=== PATIENT | female | born 1960 | race Caucasian/White ===

== ENCOUNTER 2017-01-28 10:01 | Outpatient (CLI) | payer OTHER ==
--- NOTE | 2017-01-31 16:18 | Mammography Report ---
DIGITAL SCREENING MAMMOGRAM: 01/28/2017 CLINICAL INDICATION: A 56-year-old nulliparous patient, for screening. COMPARISON: The patient reports having had a previous mammogram more than 10 years ago at an unknown location. If records in your office indicate where this mammogram was performed, we would be happy to try to obtain it for direct comparison. Otherwise, this will serve as a new baseline. TECHNIQUE: Routine CC and MLO projections were obtained of the breasts. Bilateral laterally exaggera eva craniocaudal views. FINDINGS: The breasts demonstrate fatty replacement bilaterally. Punctate, typically benign calcific ations are present. No suspicious masses, clustered microcalcifications, or regions of architectural distortion are identified. IMPRESSION: BENIGN FINDINGS. RECOMMENDATION: ROUTINE ANNUAL SCREENING UNLESS OTHERWISE CLINICALLY INDICATED. BIRADS CATEGORY 2-BENIGN FINDINGS. STANDARD QUALIFYING STATEMENTS 1. This examination was reviewed with the aid of Computer-Aided Detection (CAD). 2. A negative or benign imaging report should not delay biopsy if clinically suspicious findings are present. Consider surgical consultation if warranted. More than 5% of cancers are not identified by i maging. 3. Dense breasts may obscure an underlying neoplasm. JOB #: [id number] EXT JOB #:[id number]
== END 2017-01-28 10:02 | disposition home or self-care (01) ==
LOC: DI.N 10:01
PROVIDERS: ATTEND Physician Assistant
DX: Z12.31 Encounter for screening mammogram for malignant neoplasm of breast (principal)
CPT/HCPCS: 77067

== ENCOUNTER 2017-05-26 11:59 | Inpatient (IN) | payer OTHER ==
[2017-05-26 12:52] LABS: BASOPHILS # (AUTO) 0.1 10^3/uL (0.0-0.1); BASOPHILS % (AUTO) 0.3 %; EOSINOPHILS # (AUTO) 0.1 10^3/uL (0.0-0.7); EOSINOPHILS % (AUTO) 0.4 %; HGB - HEMOGLOBIN 16.8 g/dL (12.0-16.0); LYMPHOCYTES # (AUTO) 3.3 10^3/uL (1.5-3.5); LYMPHOCYTES % (AUTO) 16.1 %; MEAN CORPUSCULAR HEMOGLOBIN 29.5 pg (27.0-31.0); MEAN CORPUSCULAR HGB CONC 33.5 g/dL (32.0-36.0); MEAN CORPUSCULAR VOLUME 88.3 fL (81.0-99.0); MEAN PLATELET VOLUME 9.5 fL (7.9-10.8); MONOCYTES # (AUTO) 1.8 10^3/uL (0.0-1.0); MONOCYTES % (AUTO) 8.5 %; NEUTROPHILS # (AUTO) 15.4 10^3/uL (1.5-6.6); NEUTROPHILS % (AUTO) 74.7 %; PLT - PLATELET COUNT 360 10^3/uL (130-450); RED CELL DISTRIBUTION WIDTH 15.5 % (12.0-15.0); WHITE BLOOD COUNT 20.7 x10^3/uL (4.8-10.8)
[2017-05-26 13:07] LABS: DIFFERENTIAL COMMENT MANUAL=AUTO DIFF; PLATELET ESTIMATE, MANUAL NORMAL (130-450,000) (NORMAL); PLATELET MORPHOLOGY NORMAL APPEARANCE (NORMAL); RBC MORPHOLOGY (MULTIPLE) NORMAL APPEARANCE (NORMAL)
[2017-05-26 13:36] LABS: ALBUMIN 4.8 g/dL (3.2-5.5); ALBUMIN/GLOBULIN RATIO 1.1 (1.0-2.2); ALKALINE PHOSPHATASE 79 IU/L (42-121); ALT ALANINE AMINOTRANSFERASE 23 IU/L (10-60); AST ASPARTATE AMINOTRANSFERASE 21 IU/L (10-42); BILIRUBIN,TOTAL 0.9 mg/dL (0.2-1.0); BUN - BLOOD UREA NITROGEN 39 mg/dL (6-20); CALCIUM 10.4 mg/dL (8.5-10.3); CARBON DIOXIDE - CO2 24 mmol/L (21-32); CHLORIDE 93 mmol/L (101-111); CREATININE 1.8 mg/dL (0.4-1.0); GFR - MDRD 29 (>89); GLUCOSE 116 mg/dL (70-100); SODIUM 136 mmol/L (135-145)
[2017-05-26 13:39] LABS: LIPASE < 10 U/L (22-51)
[2017-05-26] MEDS ORDERED: HYDROmorphone 1 MG/ML SYRINGE IVP STA (13:57)
[2017-05-26] MEDS ORDERED: SODIUM CHLORIDE 0.9% 1,000 ML IV ONE (13:57)
[2017-05-26] MEDS ORDERED: ONDANSETRON 4 MG/2 ML VIAL IVP STA (13:57)
--- NOTE | 2017-05-26 13:58 | ED Physician Documentation ---
PD HPI ABD PAIN - Stated complaint Stated Complaint: ABD PX/VOMITING - Chief complaint Chief Complaint: Abd Pain - History obtained from History obtained from: Patient - History of Present Illness Timing - onset: Other (57-year-old woman has remote history of laparoscopic cholecystectomy, otherwise healthy with a long-standing umbilical hernia presents with 2 days of upper abdominal pain associated with vomiting, unable to keep anything down, and lack of flatus or bowel movements. She went to an urgent care yesterday and was referred to the emergency department but she could not get a ride yesterday. No improvement since yesterday.) Review of Systems Ten Systems: 10 systems reviewed and negative Constitutional: denies: Fever, Chills GI: reports: Abdominal Pain, Nausea, Vomiting, Constipation. denies: Diarrhea, Hematemesis, Bloody / black stool PD PAST MEDICAL HISTORY - Past Medical History Past Medical History: No Psych: Depression - Past Surgical History Past Surgical History: Yes General: Cholecystectomy - Present Medications Home Medications: Ambulatory Orders Medication Instructions Recorded Confirmed Ibuprofen [Advil] 200 mg PO 05/26/17 buPROPion [Wellbutrin Xl] 400 mg PO DAILY 05/26/17 05/26/17 - Allergies Allergies/Adverse Reactions: Allergies Allergy/AdvReac Type Severity Reaction Status Date / Time Sulfa (Sulfonamide AdvReac Unknown Verified 05/26/17 12:27 Antibiotics) - Social History Does the pt smoke?: Yes Smoking Status: Current every day smoker Does the pt drink ETOH?: No Does the pt have substance abuse?: Yes Substance Use and Type: Marijuana - Family History Family history: reports: Non contributory - Immunizations Immunizations are current?: Yes PD ED PE NORMAL - Vitals Vital signs reviewed: Yes - General General: Alert and oriented X 3, Other (Tachycardic, Appears uncomfortable) - HEENT HEENT: PERRL, EOMI - Neck Neck: Supple, no meningeal sign, No bony TTP - Cardiac Cardiac: RRR, No murmur - Respiratory Respiratory: No respiratory distress, Clear bilaterally - Abdomen Abdomen: Other (She has an incarcerated umbilical hernia that is focally tender , I am only partially able to reduce it during initial examination prior to pain medication. There is no diffuse tenderness. She lacks bowel tones.) - Back Back: No CVA TTP, No spinal TTP - Derm Derm: Normal color, Warm and dry - Extremities Extremities: No deformity, No tenderness to palpate, Normal ROM s pain - Neuro Neuro: Alert and oriented X 3, Normal speech - Psych Psych: Normal mood, Normal affect Results - Vitals Vitals: Vital Signs - 24 hr 05/26/17 05/26/17 12:24 13:42 Temperature 36.8 C Heart Rate 115 H 94 Respiratory 18 18 Rate Blood Pressure 128/103 H 124/84 H O2 Saturation 96 93 Oxygen O2 Source Room air - Labs Labs: Laboratory Tests 05/26/17 05/26/17 12:45 12:45 WBC 20.7 H RBC 5.70 H Hgb 16.8 H Hct 50.3 H MCV 88.3 MCH 29.5 MCHC 33.5 RDW 15.5 H Plt Count 360 MPV 9.5 Neut # 15.4 H Lymph # 3.3 [place] # 1.8 H Eos # 0.1 Baso # 0.1 Absolute Nucleated RBC 0.01 Band Neuts % (Manual) Not Reportable Abnorm Lymph % (Manual) Not Reportable Nucleated RBC % 0.1 Neutrophils # (Manual) Not Reportable Lymphocytes # (Manual) Not Reportable Monocytes # (Manual) Not Reportable Eosinophils # (Manual) Not Reportable Basophils # (Manual) Not Reportable Differential Comment MANUAL=AUTO DIFF Manual Slide Review Indicated WBC Morphology NORMAL APPEARANCE Platelet Estimate NORMAL (130-450,000) Platelet Morphology NORMAL APPEARANCE RBC Morph Micro Appear NORMAL APPEARANCE Sodium 136 Potassium 3.7 Chloride 93 L Carbon Dioxide 24 Anion Gap 19.0 H BUN 39 H Creatinine 1.8 H Estimated GFR (MDRD) 29 L Glucose 116 H Calcium 10.4 H Total Bilirubin 0.9 AST 21 ALT 23 Alkaline Phosphatase 79 Total Protein 9.0 H Albumin 4.8 Globulin 4.2 Albumin/Globulin Ratio 1.1 Lipase < 10 L PD MEDICAL DECISION MAKING - ED course ED course: 57-year-old woman with symptoms and signs of a small bowel obstruction likely related to an incarcerated umbilical hernia. After the administration of pain medication I tried again to reduce its with only partial success and the surgeon was paged for consultation at 2:30 PM. Departure - Departure Disposition: ED Transfer to [facility] Clinical Impression: Incarcerated umbilical hernia, SBO (small bowel obstruction) Condition: Serious
[2017-05-26] MEDS ORDERED: AMPICILLIN/SULBACTAM 3 GM in SODIUM CHLORIDE 0.9% MINIBAG 100 ML IV STA (14:44)
[2017-05-26] MEDS ORDERED: LACTATED RINGERS 1,000 ML IV ONE ×2 (17:13→18:16)
[2017-05-26] MEDS ORDERED: LIDOCAINE 1%-EPI 1:100000 20 ML MDV SUBQ ONE ×2 (17:22)
[2017-05-26] MEDS ORDERED: BUPIVACAINE 0.25% PF 30 ML VIAL SUBQ ONE ×2 (17:23)
[2017-05-26] MEDS ORDERED: ONDANSETRON 4 MG/2 ML VIAL IVP PRN (18:24)
[2017-05-26] MEDS ORDERED: SODIUM CHLORIDE FLUSH 0.9% 10 ML SYRINGE IVP PRN (18:24)
[2017-05-26] MEDS ORDERED: PHENOL THROAT SPRAY 177 ML MM PRN (18:24)
[2017-05-26] MEDS ORDERED: HYDROmorphone 1 MG/ML SYRINGE IVP PRN (18:24)
[2017-05-26] MEDS ORDERED: NEOSTIGMINE 1 MG/1 ML 10 ML MDV IVP ONE (18:30)
[2017-05-26] MEDS ORDERED: GLYCOPYRROLATE 1 MG/5 ML VIAL IVP ONE (18:30)
[2017-05-26] MEDS ORDERED: ROCURONIUM 50 MG/5 ML VIAL IVP ONE (18:30)
[2017-05-26] MEDS ORDERED: LIDOCAINE-MPF 2% 5 ML VIAL IM ONE (18:30)
[2017-05-26] MEDS ORDERED: MIDAZOLAM 2 MG/2 ML VIAL IVP ONE (18:30)
[2017-05-26] MEDS ORDERED: fentaNYL 100 MCG/2 ML VIAL IVP ONE (18:30)
[2017-05-26] MEDS ORDERED: PROPOFOL 200 MG/20 ML VIAL IVP ONE (18:30)
[2017-05-26] MEDS ORDERED: SUCCINYLCHOLINE 200 MG/10 ML VIAL IVP ONE (18:30)
[2017-05-26] MEDS: HYDROmorphone 1 MG/ML SYRINGE IVP PRN ×2 (18:42→18:55)
[2017-05-26] MEDS ORDERED: DEXAMETHASONE 4 MG/ML VIAL ONE (18:54)
[2017-05-26] MEDS ORDERED: SODIUM CHLORIDE 0.9% 1,000 ML IV SCH (19:00)
[2017-05-26] MEDS: ACETAMINOPHEN 1,000 MG/100 ML 100 ML IV SCH (20:58)
[2017-05-26] MEDS: SODIUM CHLORIDE 0.9% 1,000 ML IV SCH (21:14)
[2017-05-26] MEDS: FAMOTIDINE 20 MG/50 ML 50 ML IV SCH (21:20)
[2017-05-26] MEDS: AMPICILLIN/SULBACTAM 3 GM in SODIUM CHLORIDE 0.9% MINIBAG 100 ML IV SCH (23:44)
[2017-05-26] MEDS: SODIUM CHLORIDE FLUSH 0.9% 10 ML SYRINGE IVP SCH (23:45)
[2017-05-27] MEDS: ACETAMINOPHEN 1,000 MG/100 ML 100 ML IV SCH ×4 (01:15→19:01)
[2017-05-27] MEDS: HYDROmorphone 1 MG/ML SYRINGE IVP PRN ×6 (01:20→21:40)
[2017-05-27] MEDS: SODIUM CHLORIDE 0.9% 1,000 ML IV SCH ×4 (02:55→17:25)
[2017-05-27] MEDS: AMPICILLIN/SULBACTAM 3 GM in SODIUM CHLORIDE 0.9% MINIBAG 100 ML IV SCH ×3 (05:41→17:25)
[2017-05-27 06:02] LABS: BASOPHILS % (AUTO) 0.3 %; EOSINOPHILS # (AUTO) 0.1 10^3/uL (0.0-0.7); HGB - HEMOGLOBIN 13.5 g/dL (12.0-16.0); LYMPHOCYTES # (AUTO) 2.2 10^3/uL (1.5-3.5); LYMPHOCYTES % (AUTO) 17.5 %; MEAN CORPUSCULAR HEMOGLOBIN 29.2 pg (27.0-31.0); MEAN CORPUSCULAR HGB CONC 32.2 g/dL (32.0-36.0); MEAN CORPUSCULAR VOLUME 90.6 fL (81.0-99.0); MEAN PLATELET VOLUME 9.6 fL (7.9-10.8); MONOCYTES # (AUTO) 1.1 10^3/uL (0.0-1.0); MONOCYTES % (AUTO) 9.2 %; PLT - PLATELET COUNT 219 10^3/uL (130-450); RED BLOOD COUNT 4.61 10^6/uL (4.20-5.40); RED CELL DISTRIBUTION WIDTH 15.4 % (12.0-15.0); WHITE BLOOD COUNT 12.5 x10^3/uL (4.8-10.8)
[2017-05-27 06:06] LABS: CALCIUM 8.4 mg/dL (8.5-10.3); CREATININE 1.3 mg/dL (0.4-1.0)
[2017-05-27] MEDS: HEPARIN 5,000 UNIT/ML VIAL SUBQ SCH ×3 (11:00→21:27)
[2017-05-27] MEDS: SODIUM CHLORIDE FLUSH 0.9% 10 ML SYRINGE IVP SCH ×2 (11:01→15:27)
[2017-05-27 12:52] LABS: BILIRUBIN,URINE NEGATIVE (NEGATIVE); GLUCOSE, URINE (UA) NEGATIVE (NEGATIVE); KETONES,URINE (UA) TRACE mg/dL (NEGATIVE); LEUKOCYTE ESTERASE, URINE TRACE (NEGATIVE); NITRITE,URINE NEGATIVE (NEGATIVE); OCCULT BLOOD,URINE TRACE-INTA (NEGATIVE); PROTEIN,URINE NEGATIVE (NEGATIVE); UROBILINOGEN,URINE 0.2 (NORMAL) E.U./dL (NORMAL)
[2017-05-27 12:56] LABS: CLARITY,URINE CLEAR (CLEAR)
[2017-05-27 13:04] LABS: BACTERIA,URINE Rare /HPF (None Seen); RBC,URINE 0-5 /HPF (0-5); SQUAMOUS EPITHELIAL CELL,UR FEW Squamous (<= Few)
--- NOTE | 2017-05-27 15:13 | PROVIDER PROGRESS NOTE ---
Subjective - General Admit Date: 05/26/17 Procedure Date: 05/26/17 Post Op Days: 1 Procedure Performed: Repair of incarcerated ventral hernia with mesh - Review of Systems Wound/Incisions: positive: Healing well Gastrointestinal: positive: Other (no flatus) Objective - Patient Data Vital Signs: Vital Signs x48h Temp Pulse Resp BP Pulse Ox 05/27/17 12:31 36.5 C 88 18 152/54 H 95 Weight: Weight 05/25/17 05/26/17 05/27/17 23:59 23:59 23:59 Weight (kg) 102.5 kg Intake & Output: Intake and Output Totals x24h 05/25/17 05/26/17 05/27/17 23:59 23:59 23:59 Intake Total 1570 Output Total 150 1075 Balance -150 495 - Lab Results Lab Results: 05/27/17 05:22 05/27/17 05:22 Other Lab Results: Lab Results x24hrs 05/27/17 05/27/17 Range/Units 05:22 05:22 WBC 12.5 H (4.8-10.8) x10^3/uL RBC 4.61 (4.20-5.40) 10^6/uL Hgb 13.5 (12.0-16.0) g/dL Hct 41.8 (37.0-47.0) % MCV 90.6 (81.0-99.0) fL MCH 29.2 (27.0-31.0) pg MCHC 32.2 (32.0-36.0) g/dL RDW 15.4 H (12.0-15.0) % Plt Count 219 (130-450) 10^3/uL MPV 9.6 (7.9-10.8) fL Neut # 9.0 H (1.5-6.6) 10^3/uL Lymph # 2.2 (1.5-3.5) 10^3/uL [place] # 1.1 H (0.0-1.0) 10^3/uL Eos # 0.1 (0.0-0.7) 10^3/uL Baso # 0.0 (0.0-0.1) 10^3/uL Absolute Nucleated RBC 0.01 x10^3/uL Nucleated RBC % 0.1 /100WBC Sodium 139 (135-145) mmol/L Potassium 3.7 (3.5-5.0) mmol/L Chloride 102 (101-111) mmol/L Carbon Dioxide 26 (21-32) mmol/L Anion Gap 11.0 (6-13) BUN 31 H (6-20) mg/dL Creatinine 1.3 H (0.4-1.0) mg/dL Estimated GFR (MDRD) 43 L (>89) Glucose 99 (70-100) mg/dL Calcium 8.4 L (8.5-10.3) mg/dL - Current Medications Current Medications: Current Medications Generic Name Dose Route Start Last Admin Trade Name Freq PRN Reason Stop Dose Admin Heparin Sodium (Porcine) 5,000 unit 05/27/17 09:00 05/27/17 14:05 SUBQ 5,000 unit TID AVTAR Administration Hydromorphone HCl 2 mg 05/26/17 18:33 05/27/17 07:06 Dilaudid Inj Syringe IVP 2 mg Q2H PRN Administration PAIN Hydromorphone HCl 1 mg 05/26/17 18:35 05/27/17 12:41 Dilaudid Inj Syringe IVP 1 mg Q2H PRN Administration Abdominal Pain Famotidine 50 mls @ 100 mls/hr 05/26/17 21:00 05/27/17 03:31 Pepcid 20 Mg/50 Ml IV Infused HS AVTAR Infusion Acetaminophen 100 mls @ 400 mls/hr 05/26/17 19:00 05/27/17 12:37 Ofirmev IV 400 mls/hr Q6H AVTAR Administration Ampicillin Sodium/Sulbactam 100 mls @ 200 mls/hr 05/27/17 00:00 05/27/17 12: 25 Sodium 3 gm/ Sodium Chloride IV 05/27/17 18:29 Infused Q6HR AVTAR Infusion Sodium Chloride 1,000 mls @ 150 mls/hr 05/26/17 19:00 05/27/17 05:41 Normal Saline 0.9% IV 150 mls/hr .Q6H40M AVTAR Administration Ondansetron HCl 4 mg 05/26/17 18:24 05/26/17 18:50 Zofran Inj IVP 4 mg Q6H PRN Administration Nausea / Vomiting Sodium Chloride 10 ml 05/27/17 01:00 05/27/17 11:01 Normal Saline Flush 0.9% IVP 10 ml 0100,0900,1700 [facility] Administration - Physical Exam Wound/Incisions: positive: Healing well Respiratory: positive: No respiratory distress, Breath sounds nml Cardiovascular: positive: Regular rate & rhythm Impression/Plan - Problem List Problem List: Doing well without problems. Cr decreasing to 1.3 with hydration. Ambulate Await return of bowel function D/c NGT
[2017-05-27] MEDS: FAMOTIDINE 20 MG/50 ML 50 ML IV SCH (21:28)
[2017-05-28] MEDS: SODIUM CHLORIDE FLUSH 0.9% 10 ML SYRINGE IVP SCH ×2 (00:47→12:24)
[2017-05-28] MEDS: ACETAMINOPHEN 1,000 MG/100 ML 100 ML IV SCH ×2 (00:47→06:26)
[2017-05-28] MEDS: SODIUM CHLORIDE 0.9% 1,000 ML IV SCH ×2 (01:57→08:16)
--- NOTE | 2017-05-28 02:55 | OPERATIVE REPORT ---
DATE OF SERVICE: 05/26/2017 Physician: Milad Boyce MD PREOPERATIVE DIAGNOSIS: Incarcerated ventral incisional hernia. POSTOPERATIVE DIAGNOSIS: Incarcerated ventral incisional hernia. NAME OF PROCEDURE: Repair of incarcerated ventral incisional hernia with mesh. SURGEON: Milad Boyce MD ANESTHESIA: General. INDICATIONS FOR PROCEDURE: The patient is a 57-year-old female who had a previous laparoscopic cholecystectomy many years ago. She now presents with a longstanding bulge in the periumbilical area where she had a previous surgical incisional scar. Within the last 2 days, this swelling that has been there for longstanding has now become painful, along with discoloration. Because of this, she came to the emergency room to be evaluated after 2 days of the abdominal pain. On physical exam, the patient had an incarcerated ventral incisional hernia with discoloration and tenderness concerning for a strangulated ventral incisional hernia. FINDINGS AT SURGERY: The patient had a loop of small bowel, being stuck in the ventral incisional hernia. At first, the bowel was discolored and purple. After freeing the bowel up and allowing it to be adequately perfused and warmed, the bowel did pink up and looked viable. No resection was indicated. The hernia was repaired using a 6 x 6 piece of polypropylene mesh placed in the preperitoneal space. The hernia defect measured approximately 2 x 2 inches. PROCEDURE: After informed consent was obtained, the patient was taken to the operating room, placed in supine position. General endotracheal anesthesia was administered. The patient's abdomen was then prepped and draped in the usual sterile fashion. A midline abdominal incision was then made in the skin around the hernia site at the umbilicus. Incision was then deepened down to the hernia sac, which was dissected free from the surrounding structures. Hernia sac was then opened carefully and a discolored small intestine was identified. The omentum that was alongside of the small bowel was then reduced and this took the pressure off the mesentery of the small bowel loop that had become incarcerated. The small bowel was then reduced back into the abdominal cavity and let sit there for 10 minutes. The bowel was then brought back out, with the area being discolored now having return of normal color. There is one area that had still some persistent discoloration. The area was wrapped with moist, warm laps. Waiting another 10 minutes, the rest of the bowel that had some still discoloration did turn to normal color, along with having peristalsis. With the bowel appearing to be viable, it was then reduced back into the abdominal cavity. The peritoneum was then taken down circumferentially around the wound for at least 2 inches. The peritoneum was then closed using running #3-0 Vicryl suture. The subcutaneous tissue around the hernia defect was then cleared using electrocautery for several centimeters from the fascial edge. A 6 x 6 piece of polypropylene mesh was then trimmed to appropriate size and placed into the preperitoneal space. The mesh was then tacked to the overlying fascia using transfascial fixation sutures of 0 Prolene and 0 PDS sutures, alternating circumferentially around the wound. The fascial defect was then closed transversely using interrupted 0 PDS sutures placed in a [id number] fashion. The wound was irrigated. Hemostasis was obtained using electrocautery. The umbilicus was then tacked down to the fascia using 3-0 Vicryl suture. Subcutaneous tissue was approximated using 3-0 Vicryl suture. The skin incision was closed using 4-0 Monocryl subcuticular stitch. Dermabond was then applied. The patient was then awakened, extubated, and taken from the operating room in stable condition. ESTIMATED BLOOD LOSS: Less than 10 mL COMPLICATIONS: None. CONDITION OF THE PATIENT AT THE END OF THE PROCEDURE: Stable. SPECIMENS: None. DRAINS, PACKS: None. CLASSIFICATION OF WOUND: Clean. TD: 05/28/2017 02:52 GINA
[2017-05-28] MEDS: HYDROmorphone 1 MG/ML SYRINGE IVP PRN ×2 (03:16→08:13)
[2017-05-28 05:13] LABS: CALCIUM 7.9 mg/dL (8.5-10.3); CREATININE 0.8 mg/dL (0.4-1.0)
[2017-05-28] MEDS: HEPARIN 5,000 UNIT/ML VIAL SUBQ SCH ×2 (06:25→14:20)
[2017-05-28] MEDS ORDERED: HYDROcod/ACETAM 5/325 MG TABLET PO PRN (09:48)
[2017-05-28] MEDS ORDERED: SODIUM CHLORIDE 0.9% 1,000 ML IV SCH (09:49)
[2017-05-28] MEDS: HYDROcod/ACETAM 5/325 MG TABLET PO PRN ×2 (10:45→14:15)
--- NOTE | 2017-05-28 16:02 | Discharge Plan ---
Discharge Plan Disposition: 01 Home, Self Care Condition: Stable Prescriptions: HYDROcod/ACETAM 325 [[place] 5/325] 2 tab PO Q4HR PRN #40 tablet PRN Reason: Pain Diet: Soft Activity Restrictions: no lifting over 15 lbs Shower Restrictions: No Driving Restrictions: Yes (Not while on [place]) Weight Bearing: Full Weight Additional Instructions or Follow Up instructions: Abdominal binder when up No Smoking: If you smoke, Please STOP! Call for help. Follow-up with: Tiffany Lopez PA-C [Primary Care Provider] - 2 Weeks Milad Boyce MD [Provider Admit Priv/Credential] - 2 Weeks
[2017-05-28 16:15] VITALS: BP 137/62
--- NOTE | 2017-05-30 08:02 | HISTORY & PHYSICAL EXAMINATION ---
DATE OF SERVICE: Physician: Milad Boyce MD REASON FOR ADMISSION: Abdominal pain, nausea and vomiting. HISTORY OF PRESENT ILLNESS: The patient is a 57-year-old female who presents with a 2-day history of abdominal pain, nausea and vomiting. She had a previous laparoscopic cholecystectomy and has had longstanding enlargement in the area of the previous incisional scar at the umbilicus. This is now turning discolored, which is another reason why she came to the emergency room to be evaluated. PAST SURGICAL HISTORY: Laparoscopic cholecystectomy. PAST MEDICAL HISTORY: Depression. MEDICATIONS 1. Ibuprofen. 2. Wellbutrin. SOCIAL HISTORY: The patient is single. HABITS: The patient does smoke and uses marijuana. Denies any alcohol use. ALLERGIES: SULFA MEDICATIONS. FAMILY HISTORY: Noncontributory. REVIEW OF SYSTEMS: A complete review of systems is obtained. Pertinent positives are gastrointestinal for abdominal pain, nausea and vomiting, and psychological for depression. A 12-point review of systems is obtained with pertinent positives discussed and all others being negative. PHYSICAL EXAMINATION VITAL SIGNS: Temperature is 36.8, heart rate 94, respirations 18, blood pressure 124/84. GENERAL: The patient is in mild distress secondary to her abdominal discomfort. EYES: Nonicteric. NECK: No lymphadenopathy. HEART: Regular. LUNGS: Clear. BACK: Nontender. ABDOMEN: Soft, tender around the umbilicus where she has an incarcerated ventral incisional hernia. The skin is discolored in this area. EXTREMITIES: No edema or cyanosis. NEUROLOGIC: The patient appears to be neurologically intact without any deficit. PSYCHOLOGICAL: The patient is coherent, cooperative, and appears to answer questions fully. DIAGNOSTIC DATA: White blood cell count of 21, hemoglobin 17, creatinine of 1.8, sodium 136, potassium 3.7. ASSESSMENT AND PLAN 1. Abdominal pain, nausea and vomiting secondary to incarcerated ventral incisional hernia. She is having skin discolorations around the hernia along with tenderness. I fear that she has incarcerated small bowel that may be ischemic or even nonviable. I recommended she undergo emergently surgery, being exploratory laparotomy, repair of incarcerated ventral incisional hernia with possible mesh, and possible bowel resection. The risks and possible complications of the procedure have been explained to her and include, but not limited to bleeding, infection, anesthesia risks, heart and lung problems, wound healing problems, infection of the mesh, recurrence of her hernia, anastomotic leak, enterotomy, scarring, etc. She accepts risks and wishes to proceed. No guarantees given or implied. 2. The patient has a creatinine 1.8. This most likely is secondary to dehydration as her incarcerated hernia may be causing a bowel obstruction along with nausea and vomiting. She will be aggressively hydrated. 3. Depression, on medications. PLAN 1. The patient will be admitted to the hospital. 2. N.p.o. 3. IV fluids. 4. IV antibiotics. 5. Exploratory laparotomy, possible bowel resection, possible repair of incarcerated ventral incisional hernia with mesh. TD: 05/30/2017 08:01
== END 2017-05-28 17:00 | disposition home or self-care (01) | DRG 355 ==
LOC: ED 11:59 → SDS 16:00 → MS2 18:23
PROVIDERS: ADMIT Surgery; ATTEND Surgery
PROC: 0WUF0JZ Supplement Abdominal Wall with Synthetic Substitute, Open Approach (ICD-10-PCS; principal; 2017-05-26 16:00)
DX: K43.0 Incisional hernia with obstruction, without gangrene (principal); F32.9 Major depressive disorder, single episode, unspecified; F17.200 Nicotine dependence, unspecified, uncomplicated; Z90.49 Acquired absence of other specified parts of digestive tract
CPT/HCPCS: 36415; 80048; 80053; 81001; 81003; 83690; 85025; 87086; 96365; 96375; 99283; 99284

== ENCOUNTER 2019-11-06 09:11 | Outpatient (CLI) | payer OTHER ==
--- NOTE | 2019-11-06 10:18 | XRAY Report ---
PROCEDURE: Chest 2 View X-Ray INDICATIONS: Tobacco use TECHNIQUE: 2 view(s) of the chest. COMPARISON: None. FINDINGS: Surgical changes and devices: None. Lungs and pleura: No pleural effusions or pneumothorax. Lungs are clear. Mediastinum: Mediastinal contours are normal. Heart size is normal. Bones and chest wall: No suspicious bony abnormalities. Soft tissues appear unremarkable. IMPRESSION: No acute cardiopulmonary process demonstrated by plain radiography. Reviewed by: Enrique Taylor MD on 11/06/2019 10:17 AM PDT Approved by: Enrique Taylor MD on 11/06/2019 10:17 AM PDT Station ID: [id number]
== END 2019-11-06 09:12 | disposition home or self-care (01) ==
LOC: DI.N 09:11
PROVIDERS: ATTEND Family Medicine
DX: Z12.2 Encounter for screening for malignant neoplasm of respiratory organs (principal)
CPT/HCPCS: 71046

== ENCOUNTER 2019-11-21 12:29 | Outpatient (CLI) | payer OTHER ==
--- NOTE | 2019-11-22 10:02 | Mammography Report ---
BILATERAL DIGITAL SCREENING MAMMOGRAM 3D/2D: 11/21/2019 CLINICAL: Routine screening. Comparison is made to exam dated: 01/28/2017 mammogram - [facility]. There are sc attered fibroglandular elements in both breasts. No significant masses, calcifications, or other findings are seen in either breast. There has been no significant interval change. IMPRESSION: NEGATIVE There is no mammographic evidence of malignancy. A 1 year screening mammogram is recommended. This exam was interpreted at Station ID: [id number]. NOTE: For mammograms, a report in lay terms will be sent to the patient. Approximately 15% of breast malignancies will not be visualized mammographically. In the management of a palpable breast mass, a negative mammogram must not discourage biopsy of a clinically suspicious lesion. Electronically Signed By: Dorothy birmingham/isai:11/21/2019 15:50:51 ACR BI-RADS Category 1: Negative 3341F PARENCHYMAL PATTERN: (A) - The breast(s) demonstrate(s) scattered fibroglandular densities. BI-RADS CATEGORY: (1) - 1 RECOMMENDATION: (ANNUAL) - Recommend routine annual screening mammography. [id number] 1 year screening LATERALITY: (B)
== END 2019-11-21 12:30 | disposition home or self-care (01) ==
LOC: DI.N 12:29
PROVIDERS: ATTEND Family Medicine
DX: Z12.31 Encounter for screening mammogram for malignant neoplasm of breast (principal)
CPT/HCPCS: 77063; 77067